=== PATIENT | female | born 1960 | race Caucasian/White ===

== ENCOUNTER → 2021-07-13 | Day surgery (SDC) | payer OTHER ==
[~2021-07-13] VITALS: Ht 167.6 cm; Wt 129.3 kg
[~2021-07-13] MED LIST: ACCUPRIL20 MG PO; AMIODARONE HCL200 MG PO; CARDIZEM CD180 MG PO; CELEXA10 MG PO; CLIMARA TD; DIGITEK250 MCG PO; DILTIAZEM 12HR90 MG PO; ELIQUIS5 MG PO; TOPROL XL 50 MG50 MG PO; TOPROL XL100 MG PO; VICTOZA 2-0.6 MG/0.1 SC; [UNRECOGNIZED DRUG - OTHER] TD
[2021-07-13 07:54] LABS: HCT 48.1 % (37.0-47.0); HGB 15.9 g/dl (12.5-16.0); MCH 29.4 pg (25.0-31.0); MCHC 33.1 g/dL (32.0-36.0); MCV 88.9 fL (78.0-100.0); MPV 10.1 fL (6.0-9.5); RBC 5.41 M/uL (4.20-5.40); RDW 13.6 % (11.5-14.0); WBC 9.1 K/uL (4.0-10.5)
[2021-07-13 08:13] LABS: ALBUMIN 3.5 g/dL (3.4-5.0); BILIRUBIN - TOTAL 0.4 mg/dL (0.2-1.0); BUN/CREAT RATIO (CALC) 18.1 RATIO; CREATININE 0.72 mg/dL (0.51-0.95); GLOBULIN (CALCULATION) 4.5 g/dL; POTASSIUM 4.1 mmol/L (3.5-5.1)
== END | disposition home or self-care (01) ==
LOC: FAS 07:19
PROVIDERS: Surgery
DX: Z12.11 Encounter for screening for malignant neoplasm of colon (principal); I10 Essential (primary) hypertension; E11.9 Type 2 diabetes mellitus without complications; I48.91 Unspecified atrial fibrillation; K64.9 Unspecified hemorrhoids; D75.1 Secondary polycythemia; Z86.010 Personal history of colon polyps; Z80.0 Family history of malignant neoplasm of digestive organs; Z88.1 Allergy status to other antibiotic agents; Z90.710 Acquired absence of both cervix and uterus; E03.9 Hypothyroidism, unspecified; Z79.01 Long term (current) use of anticoagulants; Z79.84 Long term (current) use of oral hypoglycemic drugs; Z79.899 Other long term (current) drug therapy
CPT/HCPCS: 36415; 80053; J2250; J2704; J7120